=== PATIENT | female | born 1970 | race Caucasian/White ===

== ENCOUNTER 2018-06-30 15:17 | Emergency (ER) | payer SELFPAY ==
[~2018-06-30] VITALS: Ht 162.6 cm; Wt 70.0 kg
[2018-06-30 15:20] VITALS: BP 134/63; PULSE 84; RESP 20; Ht 162.6 cm; Wt 70.0 kg
== END 2018-06-30 16:18 | disposition left against medical advice (07) ==
LOC: FTE 15:17
DX: Z53.21 Procedure and treatment not carried out due to patient leaving prior to being seen by health care provider (principal)